=== PATIENT | female | born 1930 | race African-American/Black ===

== ENCOUNTER 2018-04-25 13:29 | Inpatient (IN) ==
--- NOTE | 2018-04-25 14:02 | EKG Report ---
Test Performed on : 04/25/2018 1:52:35 PM Test Reason : sob chest pain chf Blood Pressure : / mmHG Vent. Rate : 052 BPM Atrial Rate : 058 BPM P-R Int : 000 ms QRS Dur : 122 ms QT Int : 496 ms P-R-T Axes : 000 -50 036 degrees QTc Int : 461 ms Wide QRS rhythm. Right bundle branch block Left anterior fascicular block Bifascicular block Septal infarct , age undetermined Abnormal ECG When compared with ECG of 12-DEC-2017 13:54, (Unconfirmed) Wide QRS rhythm. has replaced Atrial fibrillation. Unconfirmed Result
[2018-04-25 14:28] LABS: BASO# 0.02 X1000 (0.0-0.2); BASO% 0.4 % (0.0-0.8); EOS# 0.02 X1000 (0.0-0.7); EOS% 0.4 % (0.0-10.0); HEMATOCRIT 18.7 % (37.0-47.0); IMM GRAN# 0.02 X1000 (0.0-0.04); IMM GRAN% 0.4 % (0.0-0.5); LYMPH# 0.81 X1000 (1.2-3.4); LYMPH% 15.6 % (20.5-51.1); MCH 28.6 PG (27-31); MCHC 29.9 g/dL (33-37); MCV 95.4 FL (81-99); MONO# 0.56 X1000 (0.11-0.59); MONO% 10.8 % (1.7-9.3); MPV 10.7 FL (7.4-10.4); NEUT# 3.77 X1000 (1.4-6.5); NEUT% 72.4 % (42.2-75.2); PLT 183 X1000 (130-400); RBC 1.96 XMIL (4.2-5.4)
[2018-04-25 14:30] LABS: HEMOGLOBIN 5.6 g/dL (12.0-16.0)
[2018-04-25 14:44] LABS: INR 3.96
[2018-04-25 14:46] LABS: D-DIMER 0.88 ug/mLFEU (0.0-0.52)
[2018-04-25 14:55] LABS: ALBUMIN 3.3 g/dL (3.5-5.0); CALCIUM 8.8 mg/dL (8.8-10.2); CREATININE 2.3 mg/dL (0.5-0.9); MAGNESIUM 1.8 mg/dL (1.5-2.7); POTASSIUM 5.6 mmol/L (3.5-5.1); PROTIME 40.5 Seconds (11.0-16.0); TOTAL BILIRUBIN 0.4 mg/dL (0.20-1.00); TOTAL PROTEIN 6.1 g/dL (6.3-8.3)
[2018-04-25 14:55] LABS: OCCULT BLOOD 1 POSITIVE (NEGATIVE)
--- NOTE | 2018-04-25 15:16 | Diag Imaging Result Doc PS360 ---
CHEST-2 VIEWS - 04/25/2018 INDICATION: chf sob chest pain COMPARISON: 12/12/2017 FINDINGS: Stable rather severe cardiomegaly. Pulmonary vascularity is top normal. No infiltrates or edema. No pneumothorax or pleural effusion. IMPRESSION: Stable cardiomegaly. Electronically signed by Minor Gonzalez 04/25/2018 3:14 PM
[2018-04-25] MEDS ORDERED: NS 1,000 ML ONE (16:35)
[2018-04-25] MEDS ORDERED: TYLENOL PO PRN (16:41)
[2018-04-25] MEDS ORDERED: ZOFRAN IV PRN (16:41)
[2018-04-25] MEDS: NS 1,000 ML IV SCH (16:45)
[2018-04-25] MEDS: APRESOLINE PO SCH (18:49)
[2018-04-25] MEDS: ISORDIL PO SCH (18:49)
[2018-04-25] MEDS ORDERED: ZEBETA PO SCH (21:00)
[2018-04-25] MEDS ORDERED: VITAMIN K 10 MG in NS 50 ML IV ONE (23:06)
[2018-04-25] MEDS ORDERED: SODIUM CHLORIDE 0.9% INJ SCH (23:15)
[2018-04-25] MEDS: TRUSOPT 2% OPH SOLN LEFT EYE SCH (23:25)
[2018-04-25] MEDS: LUMIGAN 0.01% OPH SOLUTION BOTH EYES SCH (23:26)
[2018-04-25] MEDS: PROTONIX IV SCH (23:30)
--- NOTE | 2018-04-25 23:42 | HISTORY AND PHYSICAL ---
PRIMARY CARE PHYSICIAN: Dr. Keiko Severino. CHIEF COMPLAINT: Shortness of breath, dizziness that began last night. HISTORY OF PRESENTING ILLNESS: This is an 87-year-old female who presents to [facility] ER with complaints of shortness of breath and dizziness that began last night. She was admitted to this facility approximately 1 month ago and diagnosed with a right femoral vein DVT and started on Xarelto has done well on it up until this point until last night she states she got worsening shortness of breath and dizziness. Her laboratory data showed a hemoglobin of 5.6, hematocrit 18.7, she has had rectal bleeding. Her D-dimer is 0.88, BUN of 76, creatinine 2.3. Her stool for occult blood was positive so she will be admitted to the [facility] for GI consultation for further evaluation and treatment. PAST MEDICAL HISTORY: Atrial fibrillation, CHF, hypertension, hyperlipidemia, diabetes type 2, hypothyroidism and a right femoral vein DVT diagnosed on 03/18/2018. PAST SURGICAL HISTORY: Appendectomy and hysterectomy. FAMILY HISTORY: Noncontributory. SOCIAL HISTORY: She currently lives alone. Denies any tobacco, alcohol or illicit drug use. ALLERGIES: She has no known drug allergies. HOME MEDICATIONS: She takes Cordarone 200 mg p.o. daily, aspirin 81 mg p.o. daily will be held, Lumigan eye drops 0.01% to both eyes at bedtime, Zebeta 10 mg p.o. at bedtime, vitamin B12 1000 mcg as directed will be held, Trusopt 2% ophthalmic solution 1 drop to left eye b.i.d., Lasix 40 mg p.o. daily will be held, hydralazine 25 mg p.o. t.i.d., isosorbide 20 mg p.o. t.i.d., levothyroxine 50 mcg p.o. daily, Losartan 100 mg p.o. daily, lovastatin 20 mg p.o. daily, Glucophage 850 mg p.o. b.i.d. will be held, ramipril 10 mg p.o. b.i.d. will be held, Xarelto 15 mg p.o. b.i.d. will be held and Aldactone 25 mg p.o. b.i.d. will be held. LABORATORY DATA: Showed a white blood cell count of 5.20, hemoglobin 5.6, hematocrit 18.7, platelets 183,000, PT and INR of 40.5 and 3.96 with a D-dimer of 0.88, sodium 141, potassium 5.6, chloride 108, CO2 14, BUN of 76, creatinine 2.3, glucose 148, magnesium 1.8. Cardiac enzyme was negative. ProBNP of 6838, stool for occult blood was positive. Chest x-ray showed stable cardiomegaly. EKG showed wide QRS rhythm with a right bundle-branch block at 52. REVIEW OF SYSTEMS: She denied any fever, chills, blurred vision. She has had dizziness, lightheadedness, shortness of breath. Denied any chest pain, coughing, abdominal pain, constipation, diarrhea, burning or hurting with urination. PHYSICAL EXAMINATION: On arrival she had a temperature of 97.8 degrees, pulse 51, respirations 20, blood pressure 130/51, saturating 96% on room air. GENERAL: This is an 87-year-old female lying in the bed and answers questions appropriately. HEENT: Normocephalic, atraumatic. Normal ENT inspection. Oropharynx and nares are clear. Pupils are equal, round, reactive to light, accommodation. Extraocular movements are intact. NECK: Normal inspection, normal range of motion. LUNGS: Clear to auscultation bilaterally. Equal lung expansion, chest wall movement. HEART: With regular rate and rhythm. No murmurs, rubs, or gallops. ABDOMEN: Soft, nontender, nondistended. Bowel sounds were present x4 quadrants. MUSCULOSKELETAL: She has 5/5 strength x4 extremities. NEUROLOGICAL: The cranial nerves 2-12 appear grossly intact. ASSESSMENT: 1. Gastrointestinal bleed. 2. Symptomatic anemia. 3. Acute kidney injury. 4. An elevated D-dimer secondary to having a right femoral vein deep vein thrombosis 1 month ago and was started on Xarelto. OUR PLAN: She will be admitted to the [facility]. Placed on telemetry. Diabetic diet. We will transfuse 2 units of packed red blood cells today, consult GI, normal saline at 50 mL an hour. We will hold her ERA, ARB and diuretics at this time and recheck a CBC, BMP in the a.m. Dictated by ROSALIE Cerda for Tejinder Rich MD cc: MD Tejinder Hidalgo MD
[2018-04-26] MEDS: LASIX IV ONE ×2 (00:23→01:45)
[2018-04-26 01:33] LABS: HEMATOCRIT 26.9 % (37.0-47.0); HEMOGLOBIN 8.8 g/dL (12.0-16.0)
[2018-04-26 06:03] LABS: BASO# 0.01 X1000 (0.0-0.2); BASO% 0.2 % (0.0-0.8); EOS# 0.06 X1000 (0.0-0.7); EOS% 1.1 % (0.0-10.0); HEMOGLOBIN 8.3 g/dL (12.0-16.0); LYMPH# 1.14 X1000 (1.2-3.4); LYMPH% 20.2 % (20.5-51.1); MCH 28.9 PG (27-31); MCHC 31.9 g/dL (33-37); MCV 90.6 FL (81-99); MONO# 0.89 X1000 (0.11-0.59); MONO% 15.8 % (1.7-9.3); MPV 10.6 FL (7.4-10.4); NEUT# 3.53 X1000 (1.4-6.5); NEUT% 62.7 % (42.2-75.2); PLT 152 X1000 (130-400); RBC 2.87 XMIL (4.2-5.4); RDW 15.4 % (11.5-14.5); WBC 5.63 X1000 (4.8-10.8)
[2018-04-26] MEDS: SYNTHROID PO SCH (06:17)
[2018-04-26 06:18] LABS: CALCIUM 8.9 mg/dL (8.8-10.2); CREATININE 2.1 mg/dL (0.5-0.9); POTASSIUM 5.1 mmol/L (3.5-5.1)
[2018-04-26] MEDS: APRESOLINE PO SCH ×3 (08:58→16:49)
[2018-04-26] MEDS: ISORDIL PO SCH ×3 (08:59→16:49)
[2018-04-26] MEDS: CORDARONE PO SCH (08:59)
[2018-04-26] MEDS: TRUSOPT 2% OPH SOLN LEFT EYE SCH ×2 (08:59→20:04)
[2018-04-26] MEDS: PATIENT'S OWN MED PO SCH (09:00)
--- NOTE | 2018-04-26 10:15 | HISTORY AND PHYSICAL ---
ADDENDUM: Patient was seen and examined by myself on the . Full note dictated and discussed with nurse practitioner. Patient presented to the ER with a chief complaint of blood in her stool. She was recently diagnosed with a DVT and was placed on Xarelto. We will admit her to the hospital, type and cross, transfuse, get GI involved. Further orders as needed. cc: Tejinder Rich MD
[2018-04-26] MEDS: PROTONIX IV SCH (10:32)
[2018-04-26] MEDS: NS 1,000 ML IV SCH ×3 (10:33→14:46)
[2018-04-26 13:14] LABS: INR 1.62; PROTIME 20.5 Seconds (11.0-16.0)
[2018-04-26 13:50] LABS: HEMATOCRIT 26.6 % (37.0-47.0); HEMOGLOBIN 8.5 g/dL (12.0-16.0)
[2018-04-26] MEDS: PROTONIX 80 MG in NS 80 ML IV SCH ×2 (14:32→23:51)
[2018-04-26] MEDS ORDERED: VITAMIN K 10 MG in NS 50 ML IV ONE (15:00)
--- NOTE | 2018-04-26 15:09 | PROGRESS NOTE ---
DATE: 04/26/2018 SUBJECTIVE: Has no complaints. As far as I can tell no further bleeding. OBJECTIVE: Vital Signs: Blood pressure is 135/95, heart rate of 54, respiratory rate 17, temperature 98.2, 98% on room air. Cardiovascular: Regular rate and rhythm. Pulmonary: Bilateral breath sounds, clear to auscultation. Gastrointestinal: Soft, nontender, nondistended. Bowel sounds are positive. She does have 2+ pitting edema in both legs. I would say one is slightly more than the other. LABORATORY DATA: White count 5, hemoglobin and hematocrit 8 and 26, platelets 152,000. INR is 1.6, bicarb 17, creatinine is 2.1, BUN is 82. Her proBNP though is 6838. PROBLEM LIST: 1. GI bleed, presumably lower, associated with Xarelto and she had a recent DVT. Unfortunately, not a great combination of events. We are obviously holding Xarelto. She was coagulopathic and we do not have access to the reversal agent at this time that I am aware of and DEXA met, I believe yes. She did get wisely 2 units of FFP. She also got vitamin K, but she is on a NOAC which is not a vitamin K antagonist. In any case, INR is better, it is 1.6 today. Should be okay for endoscopy, but I do not think GI has evaluated her yet. We will continue PPI and follow. Hemoglobin and hematocrit has improved as well. 2. Coagulopathy, again related to Xarelto, rivaroxaban, and that has improved. 3. History of DVT. We will rescan her legs. She has only had a month to a month and a half of treatment and she has had a significant bleed requiring 3 units of blood and 2 units of FFP at this point. I would say she is not going to be tolerant of anticoagulation and therefore I have requested a surgical consult for a filter. Hopefully, we can get that assessed and decided upon. She is 87. It is certainly possible she is not going to outlive her filter at 10 years of anticoagulation, but at this point I do not think we can safely anticoagulate her and apparently her DVT is from her ankle to her femoral area, and therefore high risk for embolization, but we will see what Dr. Holm says. 4. Acute kidney injury. Will continue gentle hydration. She does not have a history of failure. Her echocardiogram in July was normal. May consider repeating that. DISPOSITION: Pending her clinical status, her family would like her home by [place]. Explained that may be difficult considering what all is going on and the speed of which we can get procedures accomplished during the holiday weekend. cc: Edvin Bishop MD MTDD
[2018-04-26] MEDS: ICAR-C PO SCH (20:04)
[2018-04-26] MEDS: CARAFATE LIQUID PO SCH (20:04)
[2018-04-26] MEDS: LUMIGAN 0.01% OPH SOLUTION BOTH EYES SCH (20:04)
--- NOTE | 2018-04-26 20:08 | GENERAL SURGERY CONSULTATION ---
DATE: 04/26/2018 REQUESTING PHYSICIAN: Edvin Bishop MD. REASON FOR CONSULTATION: Consult requested concerning consideration of IVC filter. HISTORY OF PRESENT ILLNESS: An 87-year-old female who presented to the [facility] ER with complaints of shortness of breath and dizziness. She has previously been diagnosed with a right common femoral DVT and had been on Xarelto for maybe a month and a half. When she came in, she had rectal bleeding, a hematocrit of 18, with a presumed GI bleed. She was transferred over to [facility] for further evaluation. Given this and their need to stop Xarelto, I was asked to evaluate her for placement of an IVC filter. She is currently doing okay. Her hematocrit has been stable, and we are awaiting a repeat ultrasound. PAST MEDICAL HISTORY: Includes: 1. History of atrial fibrillation. 2. Congestive heart failure. 3. Hypertension. 4. Hyperlipidemia. 5. Diabetes mellitus type 2. 6. Hypothyroidism. 7. History of right femoral DVT. PAST SURGERY: Includes appendectomy and hysterectomy. FAMILY HISTORY: Noncontributory, but reviewed with patient. SOCIAL HISTORY: Currently lives at home. No alcohol, tobacco, or illicit drugs. ALLERGIES: None. MEDICATIONS: Home medications were reviewed. Of note, she was on Xarelto. REVIEW OF SYSTEMS: A full 10-point review of systems obtained and negative except as specified in HPI. PHYSICAL EXAMINATION: Vital Signs: The patient is currently afebrile. Her vital signs are stable. General: No acute distress, female, looks stated age. HEENT: Normocephalic, atraumatic. Pupils equal, round, reactive to light. Mucous membranes moist. Oropharynx benign. Neck: Supple. Trachea midline. Cardiovascular: Regular rate and rhythm. Lungs: Grossly clear. Abdomen: Soft, nontender, nondistended. Extremities: Moves all extremities. Neurologic: Grossly intact. Skin: No signs of jaundice. Vascular: All extremities perfused. LABORATORY: White blood cell count is 5, hematocrit 26, platelet count 152,000. INR 1.62. Remainder of labs reviewed. 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 GI bleed with chronic DVT. At this time, I would like to see a followup ultrasound to see if there actually still exists a clot. She did have a relatively extensive one back in March. If she does have a clot, may need to consider IVC filter. Discussed this with the family. Discussed the risks, benefits, and alternatives of the procedure. Risks including anesthesia, risk of perforation, risk of malpositioning, risk of fracturing, risk of clot formation, and risk that small clots will still pass through, all discussed with the family. They want to consider it but want to wait for further decision and ultimate decision until after the repeat ultrasound is done, which should be tomorrow. If there is indeed a clot, I may get my partner, Dr. Yan, to place it. cc: Kenan Holm MD
[2018-04-26 20:15] LABS: HEMATOCRIT 26.4 % (37.0-47.0); HEMOGLOBIN 8.4 g/dL (12.0-16.0)
--- NOTE | 2018-04-26 20:19 | CONSULTATION ---
DATE OF CONSULTATION: 04/26/2018 ATTENDING PHYSICIAN: Dr. Edvin Bishop MD. PRIMARY CARE PHYSICIAN: Keiko Severino MD. REASON FOR CONSULTATION: GI bleed. HISTORY OF PRESENT ILLNESS: Ms. Holguin is an 87-year-old female who was admitted on 04/25/2018 for shortness of breath and dizziness. The patient was initially admitted to [facility] and was transferred to [facility]. She was admitted to facility a month ago and was diagnosed with right femoral DVT and was started on Xarelto. On admission this time ,her hemoglobin was noted to be 5.6, and INR was noted to be 3.96. In the last 24 hours, she has been given 2 units FFP, vitamin K, and 3 units of blood. Her hematocrit has improved. She denies any nausea, vomiting, vomiting blood, or passing blood in the stools today. The patient denies having any previous history of peptic ulcer disease or previous history of EGDs. She has had a colonoscopy many years ago. I also spoke to the patient's sister and the patient and the patient's daughter by phone. PAST MEDICAL HISTORY: 1. Atrial fibrillation. 2. Congestive heart failure. 3. Hypertension. 4. Hyperlipidemia. 5. Type 2 diabetes. 6. Hypothyroidism. 7. Right femoral DVT diagnosed on 03/18/2018. PAST SURGICAL HISTORY: Appendectomy, hysterectomy. FAMILY HISTORY: Noncontributory. SOCIAL HISTORY: She lives alone. Her sister is present at bedside. I spoke to daughter by phone. No history of alcohol, tobacco, or illicit drugs. ALLERGIES: No known drug allergies. MEDICATIONS: Medications at home were reviewed. MEDICATIONS IN THE HOSPITAL: Included Tylenol, amiodarone, bimatoprost ophthalmic solution at bedtime, dorzolamide left eye b.i.d., hydralazine, Iron-C b.i.d., isosorbide dinitrate, Synthroid, multivitamin, normal saline 70 mL/hr., Zofran, Protonix drip, Carafate 1 g q.6 hours. She has been given vitamin K. She is currently on a diabetic diet, we just switched to clear liquid diet. REVIEW OF SYSTEMS: Denies any fevers, rigors, or chills. Denies any chest pain or shortness of breath. Today, on admission she complained of shortness of breath, which is improving now. She does have history of arthritis. She denies any vomiting blood. She does have history of rectal bleeding, and her stool occult was positive on admission. She denies any neurologic complaints. PHYSICAL EXAMINATION: Vital Signs: Temperature 97.8 degrees, pulse rate 52, respiratory rate of 17, blood pressure 139/63, saturating 98% on room air. Body weight of 145 pounds. BMI of 26.5 kg. General Appearance: The patient is moderately-built, moderately-nourished, lying in bed, in no acute distress. HEENT: Pale conjunctivae. No icterus. Pupils equal, reactive to light. Neck: Supple. Abdomen: Soft, nontender, nondistended. No guarding or rebound. Extremities: No cyanosis or clubbing. Neurologic: She is awake, alert. Answers simple questions. LABORATORY DATA: Hemoglobin and hematocrit are 8.3 and 26. White count of 5.63. Platelet count of 152,000. Sodium of 143, potassium 5.1, chloride 108, bicarb of 17, anion gap of 18, BUN of 82, creatinine of 2.1, glucose of 110, calcium is 8.9, total bilirubin is 0.40. AST 24, ALT 13, alkaline phosphatase 56, total protein is 6.1, albumin of 3.3. Stool occult blood was positive. PT of 20.5. INR 1.62. IMPRESSION AND PLAN: 1. Positive Hemoccult. 2. Rectal bleeding. 3. Anemia. 4. Coagulopathy in the setting of recent history of right-sided femoral deep venous thrombosis. 5. History of congestive heart failure. 6. Coronary artery disease. 7. Chronic obstructive pulmonary disease. 8. History of hypertension. 9. Diabetes. 10. Hyperlipidemia. 11. Anemia. RECOMMENDATIONS: 1. We will start the patient on clear liquid diet. We will continue to watch patient's hematocrit. Type and cross, transfuse to keep hematocrit more than 25%. We will check serial hematocrits. We will give additional dose of vitamin K as INR is still 1.6. We will schedule for EGD tomorrow under anesthesia. The risks, benefits, indications, and alternatives to the procedure discussed with the patient and family and with her daughter on phone. All questions answered. Her risk of any kind of procedure including EGD is slightly high because of multiple medical comorbid conditions. 2. Coagulopathy. This is secondary to Xarelto. This is currently being reversed with FFPs and vitamin K. 3. History of deep venous thrombosis, aware. 4. Acute kidney injury. Continue gentle hydration. 5. Continue Protonix drip and Carafate. 6. Anemia. Continue iron-C b.i.d. and multivitamin once daily. 7. Hypothyroidism. Continue Synthroid. 8. Further recommendations to follow pending hospital course. The above plan discussed with the patient and family and all questions answered. Please call us with any further questions. cc: MD Keiko Jones MD
[2018-04-27] MEDS: CARAFATE LIQUID PO SCH ×4 (01:20→20:03)
[2018-04-27 02:56] LABS: HEMATOCRIT 25.2 % (37.0-47.0); HEMOGLOBIN 8.1 g/dL (12.0-16.0)
[2018-04-27 05:42] LABS: INR 1.37; PROTIME 17.9 Seconds (11.0-16.0)
[2018-04-27] MEDS: NS 1,000 ML IV SCH ×2 (05:53→19:22)
[2018-04-27] MEDS: SYNTHROID PO SCH (05:54)
[2018-04-27 06:01] LABS: BASO# 0.01 X1000 (0.0-0.2); BASO% 0.2 % (0.0-0.8); EOS# 0.14 X1000 (0.0-0.7); EOS% 2.7 % (0.0-10.0); HEMATOCRIT 25.2 % (37.0-47.0); HEMOGLOBIN 8.1 g/dL (12.0-16.0); LYMPH% 15.6 % (20.5-51.1); MCH 29.1 PG (27-31); MCHC 32.1 g/dL (33-37); MCV 90.6 FL (81-99); MONO# 0.92 X1000 (0.11-0.59); MONO% 17.9 % (1.7-9.3); MPV 10.1 FL (7.4-10.4); NEUT# 3.26 X1000 (1.4-6.5); NEUT% 63.6 % (42.2-75.2); PLT 162 X1000 (130-400); RBC 2.78 XMIL (4.2-5.4); RDW 15.7 % (11.5-14.5); WBC 5.13 X1000 (4.8-10.8)
[2018-04-27 06:11] LABS: CALCIUM 8.6 mg/dL (8.8-10.2); CREATININE 1.8 mg/dL (0.5-0.9); POTASSIUM 4.1 mmol/L (3.5-5.1)
--- NOTE | 2018-04-27 06:14 | GENERAL SURGERY PROGRESS NOTE ---
DATE: 04/27/2018 SUBJECTIVE: Patient seems to be doing okay. No complaints from the patient. OBJECTIVE: Vital Signs: Patient is currently afebrile, her vital signs stable. General: No acute distress. HEENT: Normocephalic, atraumatic. Pupils equal, round, reactive to light. Mucous membranes moist. Oropharynx benign. Neck: Supple, trachea midline. Cardiovascular: Regular rate and rhythm. Lungs: Grossly clear. Abdomen: Soft, nontender, nondistended. Extremities: Moves all extremities. Neurologic: Grossly intact. Skin: No signs of jaundice. Vascular: All extremities perfused. LABORATORY: Hematocrit this morning most recent is 25.2 which is relatively stable. INR 1.37. Ultrasound is pending. ASSESSMENT AND PLAN: An 87-year-old with history of DVT, now with GI bleed. 1. History of deep venous thrombosis. At this time, we will get a follow-up ultrasound to see if the clot still exists. If it does, may need to consider placement of an IVC filter. cc: Kenan Holm MD
[2018-04-27] MEDS: TRUSOPT 2% OPH SOLN LEFT EYE SCH ×2 (08:14→20:03)
[2018-04-27] MEDS: APRESOLINE PO SCH ×3 (08:14→17:09)
[2018-04-27] MEDS: CORDARONE PO SCH (08:14)
[2018-04-27] MEDS: ICAR-C PO SCH ×2 (08:14→20:03)
[2018-04-27] MEDS: ISORDIL PO SCH ×3 (08:14→17:09)
[2018-04-27] MEDS: CENTRUM SILVER PO SCH (08:14)
[2018-04-27] MEDS: PATIENT'S OWN MED PO SCH (08:15)
[2018-04-27 08:33] LABS: HEMATOCRIT 28.6 % (37.0-47.0); HEMOGLOBIN 8.9 g/dL (12.0-16.0)
[2018-04-27] MEDS ORDERED: VITAMIN K 10 MG in NS 50 ML IV ONE (10:47)
[2018-04-27] MEDS: PROTONIX 80 MG in NS 80 ML IV SCH ×2 (11:20→20:02)
[2018-04-27] MEDS ORDERED: XYLOCAINE-MPF 2% ONE (12:26)
[2018-04-27] MEDS ORDERED: AMIDATE ONE (12:26)
--- NOTE | 2018-04-27 14:12 | OPERATIVE NOTE ---
PROCEDURE DATE: 04/27/2018 ATTENDING PHYSICIAN: Dr. Chung. PRIMARY CARE PHYSICIAN: Dr. Keiko Severino. TITLE OF STUDY: Esophagogastroduodenoscopy. PREOPERATIVE DIAGNOSES: 1. Gastrointestinal bleed. 2. Coagulopathy, which was corrected. History of use of Xarelto at home, which was discontinued. She was given vitamin K and FFPs in the hospital. She required 3 units of blood transfusion, 2 units of FFP and vitamin K to correct the coagulopathy. Current INR is 1.17. 3. History of deep venous thrombosis in the past. POSTOPERATIVE DIAGNOSES: 1. Z-line at 44 cm. 2. Evidence of gastric ulcer in the body of the stomach, measuring 1 cm superficial. No active bleeding. No visible vessel. There was surrounding gastritis in the body and antrum. 3. Normal fundus, cardia, incisura. 4. Retroflexion revealed evidence of normal duodenal bulb, second and third portions. 5. No evidence of any fresh or old blood in the entire EGD. ESTIMATED BLOOD LOSS: None. COMPLICATIONS: None. ANESTHESIA: Monitored anesthesia care, per the anesthesiologist. SPECIMENS: None. DESCRIPTION OF PROCEDURE: After informed consent, where the patient and the family were explained the risks, benefits, indications, and alternatives to the procedure, the patient prepared for EGD. The patient was brought to the OR. She was turned on the left lateral position. A bite block was placed in patient's mouth. After adequate monitored anesthesia care, the upper scope was introduced all the way to the second and third portion of duodenum. The esophagus was normal in its entire length. The Z-line was at 44 cm. The stomach showed evidence of erythema and friability in the body and antrum. There was evidence of ulcer in the gastric body, measuring 1 cm. This was a clean base. No visible vessel. No overlying clot. Retroflexion revealed normal fundus, cardia, incisura. The duodenal bulb, 2nd and 3rd portions of the duodenum appeared normal. There was no evidence of any fresh or old blood in the entire EGD. The air was slowly withdrawn. The patient was then monitored in the OR in stable condition. RECOMMENDATIONS: 1. The patient will be on a full liquid diet, advance as tolerated. The patient will continue on Protonix twice daily for 3 months, and then wean down to Zantac 150 mg p.o. b.i.d. 2. The patient will be on Carafate 1 g every 6 hours for 6 weeks. 3. The patient will be on Iron C b.i.d. and multivitamin once daily for 3 months. 4. The patient will return to clinic in 3 weeks after discharge. The patient will need a repeat EGD in 3 months to document healing of the ulcer. 5. The patient will avoid any NSAIDs. The patient will continue to follow gastroesophageal reflux lifestyle changes, avoid excessive tea, coffee, soda, tomatoes, onions, spicy foods. 6. The patient will follow up as an outpatient with the primary care doctor to follow up on blood work. The above plan was discussed with the patient and family, and all questions answered. Please call with any further questions. cc: MD Keiko Jones MD
[2018-04-27 14:58] LABS: HEMATOCRIT 26.9 % (37.0-47.0); HEMOGLOBIN 8.3 g/dL (12.0-16.0)
--- NOTE | 2018-04-27 17:37 | PROGRESS NOTE ---
DATE: 04/27/2018 SUBJECTIVE: The patient is resting comfortably in bed. She underwent EGD today. OBJECTIVE: Vital Signs: Temperature 98.1 degrees, blood pressure 149/65, heart rate 55, respirations 17, O2 saturation is 100% on room air. General: The this is an elderly female lying in bed in no acute distress. Heart: S1, S2 normal. Regular rate and rhythm. Lungs: Equal air entry bilaterally. No crackles, no rales. Abdomen: Positive bowel sounds. Soft, nontender, nondistended. Extremities: No edema, no cyanosis. Neuro: The patient is alert and oriented x3. LABS: Hemoglobin 8.3, hematocrit 26, platelets 162,000, sodium 142, potassium 4.1, chloride 112, CO2 19, BUN 62, creatinine 1.8, glucose 114, calcium 8.6, INR 1.3. ASSESSMENT AND PLAN: 1. Gastrointestinal bleed. Hemoglobin and hematocrit is stable. No further bleeding noted. 2. Gastric ulcer with gastritis. Continue on Protonix and Carafate. 3. Anemia of acute blood loss. Stable, continue on Icar C, transfuse p.r.n. 4. Hypothyroidism. Continue on Synthroid. 5. Right lower extremity deep vein thrombosis. A repeat venous Doppler has been ordered, will await these results. General Surgery is following. The patient's anticoagulation is on hold at this time. 6. Hypertension. Continue on current antihypertensive regimen. cc: Aarti Chung MD [facility]
[2018-04-27 19:56] LABS: HEMATOCRIT 26.5 % (37.0-47.0); HEMOGLOBIN 8.3 g/dL (12.0-16.0)
[2018-04-27] MEDS: LUMIGAN 0.01% OPH SOLUTION BOTH EYES SCH (20:03)
[2018-04-28 02:25] LABS: HEMATOCRIT 25.9 % (37.0-47.0); HEMOGLOBIN 8.1 g/dL (12.0-16.0)
[2018-04-28] MEDS: CARAFATE LIQUID PO SCH ×4 (02:38→21:33)
[2018-04-28 05:43] LABS: HEMATOCRIT 25.3 % (37.0-47.0); MCH 29.5 PG (27-31); MCHC 31.6 g/dL (33-37); MCV 93.4 FL (81-99); MPV 9.5 FL (7.4-10.4); RBC 2.71 XMIL (4.2-5.4); RDW 15.9 % (11.5-14.5); WBC 5.71 X1000 (4.8-10.8)
[2018-04-28] MEDS: PROTONIX 80 MG in NS 80 ML IV SCH ×2 (05:54→15:24)
[2018-04-28] MEDS: SYNTHROID PO SCH (05:54)
[2018-04-28 05:56] LABS: CALCIUM 8.5 mg/dL (8.8-10.2); CREATININE 1.4 mg/dL (0.5-0.9); POTASSIUM 4.4 mmol/L (3.5-5.1)
[2018-04-28] MEDS ORDERED: D5W 1,000 ML IV SCH (07:30)
[2018-04-28] MEDS: APRESOLINE PO SCH ×3 (08:34→17:04)
[2018-04-28] MEDS: ISORDIL PO SCH ×3 (08:34→17:04)
[2018-04-28] MEDS: CORDARONE PO SCH (08:34)
[2018-04-28] MEDS: ICAR-C PO SCH ×2 (08:34→21:33)
[2018-04-28] MEDS: CENTRUM SILVER PO SCH (08:34)
[2018-04-28] MEDS: TRUSOPT 2% OPH SOLN LEFT EYE SCH ×2 (08:35→21:37)
[2018-04-28] MEDS: PATIENT'S OWN MED PO SCH (08:35)
--- NOTE | 2018-04-28 12:11 | GENERAL SURGERY PROGRESS NOTE ---
DATE: 04/28/2018 SUBJECTIVE: No further bleeding. She did have a small bowel movement that had a little bit of blood but that is it. EGD showed a gastric ulcer. Her hematocrits have been stable since she has been off her anticoagulation. OBJECTIVE: White count is 5. Creatinine is 1.4. She had a bilateral lower extremity venous and upper extremity venous ultrasound that showed no DVT or superficial venous thrombosis. ASSESSMENT AND PLAN: This is an 87-year-old female on anticoagulation for deep venous thrombosis. She had a gastrointestinal bleed, most likely related to a peptic ulcer, although was not bleeding at the time of the esophagogastroduodenoscopy. She has not had a colonoscopy. Her hematocrits have been stable off anticoagulation. Given the lack of deep venous thrombosis, we will hold off on the inferior vena cava filter in this 87-year-old female. I have discussed this with the family via phone and the patient personally. We will monitor her closely. Her abdomen is soft. She is alert. Cardiovascular has normal rate and regular rhythm. Lower extremities show no significant edema. We will continue to monitor her. cc: Rakesh Wisdom MD
[2018-04-28] MEDS ORDERED: LASIX IV ONE ×2 (13:57→21:15)
[2018-04-28] MEDS: DUONEB (A & A) INH SCH ×4 (14:26→23:04)
--- NOTE | 2018-04-28 14:31 | Diag Imaging Result Doc PS360 ---
CHEST-PORTABLE - 04/28/2018 INDICATION: dyspnea COMPARISON: 04/25/2018 FINDINGS: Stable cardiomegaly and pulmonary vascular congestion. There is new significant central interstitial infiltrate bilaterally compatible with pulmonary edema. There are new small bilateral pleural effusions. IMPRESSION: Cardiomegaly, interstitial pulmonary edema, pleural effusions. Electronically signed by Minor Gonzalez 04/28/2018 2:29 PM
--- NOTE | 2018-04-28 14:37 | PROGRESS NOTE ---
DATE: 04/28/2018 SUBJECTIVE: The patient states that she feels weak and tired. She does have swelling involving her left upper extremity where a previous IV was in place. She reports no further blood in her stools. OBJECTIVE: Vital Signs: Temperature is 97 degrees, blood pressure 141/62, heart rate 78, respirations 18, O2 saturation 96% on room air. General: This is a chronically ill-appearing elderly female lying in bed in no acute distress. Heart: S1, S2 normal. Regular rate and rhythm. Lungs: Equal air entry bilaterally. No crackles. No rales. Abdomen : Positive bowel sounds. Soft, nontender, nondistended. Extremities: 2+ edema bilaterally in the lower extremities. Neurologic: The patient is alert and oriented x3. No focal neurologic deficits. LABORATORY DATA: White blood cell count 5.7, hemoglobin 9.1, hematocrit 25, platelets 167,000 sodium 146, potassium 4.4, chloride 115, CO2 19, BUN 37, creatinine 1.4, glucose 125, calcium 8.5. ASSESSMENT AND PLAN: 1. Gastrointestinal bleed secondary to gastric ulcers. The patient's hemoglobin and hematocrit is stable. Continue on Protonix and Carafate. 2. Volume overload with pulmonary edema. Will start IV lasix and monitor the patient's urine output closely. 3. HOLLY. Improving. 4. Anemia. Stable. 5. Right lower extremity deep vein thrombosis. We will await the official report of the venous Doppler. 6. Hypothyroidism. Continue on Synthroid. 7. Hypertension. Continue current antihypertensive regimen. 8. Disposition: Will consult physical therapy. cc: Aarti Chung MD KALEIDA HEALTHEdison
[2018-04-28 15:25] LABS: BLOOD TYPE ARTERIAL; MODALITY CANNULA; SAMPLE BLOOD; pH(98.6) 7.32 (7.35-7.45)
[2018-04-28 15:26] LABS: BE -4.7 mmoll (-3.0-3.0); HCO3-(ACT) 20.3 mmoll (20.0-26.0); PCO2(98.6) 41 mmHg (35-45); PO2(98.6) 58 mmHg (60-100); THB 9.3 g/dL (11.5-17.4)
[2018-04-28 15:27] LABS: ALLEN TEST NO; METHB 0.6 % (0.0-1.5); O2(CT) 6.2 mL/dL (15.0-23.0)
[2018-04-28] MEDS: LUMIGAN 0.01% OPH SOLUTION BOTH EYES SCH (21:37)
[2018-04-29] MEDS: PROTONIX 80 MG in NS 80 ML IV SCH (03:17)
[2018-04-29] MEDS: DUONEB (A & A) INH SCH ×6 (03:42→23:04)
[2018-04-29 05:41] LABS: HEMATOCRIT 24.9 % (37.0-47.0); HEMOGLOBIN 7.7 g/dL (12.0-16.0); MCH 29.1 PG (27-31); MCHC 30.9 g/dL (33-37); MPV 9.8 FL (7.4-10.4); RBC 2.65 XMIL (4.2-5.4); RDW 15.7 % (11.5-14.5); WBC 6.5 X1000 (4.8-10.8)
[2018-04-29] MEDS: SYNTHROID PO SCH (06:03)
[2018-04-29] MEDS: CARAFATE LIQUID PO SCH ×4 (06:03→20:41)
[2018-04-29] MEDS: LASIX IV SCH ×2 (06:03→18:03)
[2018-04-29 06:13] LABS: CREATININE 1.2 mg/dL (0.5-0.9); POTASSIUM 3.9 mmol/L (3.5-5.1)
[2018-04-29 06:14] LABS: CALCIUM 8.7 mg/dL (8.8-10.2)
--- NOTE | 2018-04-29 07:39 | Diag Imaging Result Doc PS360 ---
CHEST-PORTABLE - 04/29/2018 INDICATION: pulmonary edema COMPARISON: 04/28/2018 FINDINGS: Stable pleural effusions right greater than left. Stable cardiomegaly and pulmonary vascular congestion. Stable mild interstitial pulmonary edema. IMPRESSION: No change from prior. Electronically signed by Minor Gonzalez 04/29/2018 7:37 AM
[2018-04-29] MEDS ORDERED: VITAMIN D PO SCH (08:15)
[2018-04-29] MEDS: ICAR-C PO SCH ×2 (08:47→20:41)
[2018-04-29] MEDS: CENTRUM SILVER PO SCH (08:47)
[2018-04-29] MEDS: ISORDIL PO SCH ×3 (08:47→17:22)
[2018-04-29] MEDS: APRESOLINE PO SCH ×3 (08:47→17:22)
[2018-04-29] MEDS: CORDARONE PO SCH (08:47)
[2018-04-29] MEDS: PATIENT'S OWN MED PO SCH (08:48)
[2018-04-29] MEDS: TRUSOPT 2% OPH SOLN LEFT EYE SCH ×2 (08:48→20:42)
--- NOTE | 2018-04-29 09:13 | GENERAL SURGERY PROGRESS NOTE ---
DATE: 04/29/2018 SUBJECTIVE: Bleeding is resolved. No fevers. No tachycardia. OBJECTIVE: Vital Signs: Blood pressures systolics have been in the 120s to 140s. General: She is alert. Cardiovascular: Normal rate. Pulmonary: She is on nasal cannula. Abdomen: Soft and nontender. Integument: Warm and dry. Peripheral vascular: Trace lower extremity edema bilaterally, but no pain. LABORATORY DATA: Hematocrit 24, stable from 25. White count is 6. Creatinine is 1.2. DIAGNOSTIC STUDIES: Her lower extremity ultrasounds show no DVT in the lower extremities or upper extremity. ASSESSMENT AND PLAN: An 87-year-old female with history of deep venous thrombosis, now with a gastrointestinal bleed secondary to her anticoagulation and a gastric ulcer. Will hold her anticoagulation and hold off on filter as she does not have any evidence for persistent thrombus in this 87-year-old female. Will continue to monitor closely. I have discussed this plan with the family and they are agreeable. cc: Rakesh Wisdom MD
[2018-04-29] MEDS ORDERED: SODIUM CHLORIDE 0.9% INJ SCH (10:00)
[2018-04-29] MEDS: PROTONIX IV SCH ×2 (10:15→21:44)
--- NOTE | 2018-04-29 11:44 | PROGRESS NOTE ---
DATE: 04/29/2018 SUBJECTIVE: Patient is resting in bed. The patient is feeling better. I spoke to the patient's family at bedside. The patient denies any nausea, vomiting, vomiting blood, or passing blood in the stools. OBJECTIVE: Vital signs: Temperature of 98.8 degrees, pulse rate 64, respiratory rate 20, blood pressure 121/51, saturating 100% on 2 L nasal cannula. General Appearance: Moderately built, moderately nourished, sitting in bed, in no acute distress. HEENT: Pale conjunctivae. No icterus. Neck: Supple. Abdomen: Protuberant soft, nontender, nondistended. No guarding. Extremities: No cyanosis or clubbing. Bilateral lower extremity edema noted. Neuro Emerson: She is alert, awake, oriented. LABS: Her hemoglobin and hematocrit is 7.7 and 24.9, white count of 6.5, platelet count of 168,000. Sodium 144, potassium 3.9, chloride 111, bicarb 23, anion gap 11, BUN of 25, creatinine 1.2, glucose of 163, calcium is 8.7. Her x-ray of the chest done today showed stable pleural effusions, right greater than left. Stable cardiomegaly and pulmonary vascular congestion, stable mild interstitial pulmonary edema. IMPRESSION AND PLAN: 1. Gastrointestinal bleeding secondary to gastric ulcers in the setting of coagulopathy. She will continue Protonix twice daily for 3 months and then cut down to Zantac 150 mg p.o. b.i.d. She will continue Carafate 1 gram every 6 hours for 6 weeks. 2. Anemia. Continue to watch for now. She will continue Iron C b.i.d. and multivitamin once daily. 3. Volume overload with pulmonary edema. She will continue IV Lasix. 4. Acute kidney injury is improving. 5. Right lower extremity deep venous thrombosis. She was seen by General Surgery. Her new lower extremity ultrasound does not show any deep venous thrombosis. 6. Hypothyroidism. She is on Synthroid. 7. Gastrointestinal prophylaxis, proton-pump inhibitors. 8. Constipation. She will continue on MiraLAX twice daily. 9. The patient return to clinic in 3 months on discharge. She will need a repeat EGD to document healing of the ulcers. The above plans was discussed with the patient and family, and all questions answered. Dr. Lamb is covering us for May 06, 2017. Please call us with any further questions. cc: MD Aarti Jones MD Emily M. McClure, MD Matthew L. Figh, MD
[2018-04-29 12:45] LABS: HEMATOCRIT 29.3 % (37.0-47.0); HEMOGLOBIN 8.8 g/dL (12.0-16.0)
--- NOTE | 2018-04-29 20:27 | PROGRESS NOTE ---
DATE: 04/29/2018 SUBJECTIVE: The patient is resting comfortably in bed. She states that she wants to start getting up and walking. OBJECTIVE: Vital Signs: Temperature 98.9, blood pressure 128/45, heart rate 69, respirations 17, O2 saturation 95% on 3 liters nasal cannula. General: This is a ngmsziuipyk-ved-ipoiewobl elderly female lying in bed in no acute distress. Heart: S1 and S2 normal. Regular rate and rhythm. Lungs: Equal air entry bilaterally. No wheezing. No rales. Abdomen: Positive bowel sounds. Soft, nontender, nondistended. Extremities: There is 1+ edema bilaterally. Neurologic: The patient is alert and oriented x3. LABS: White blood cell count 6.5, hemoglobin 8.8, hematocrit 29, platelets 168. Sodium 145, potassium 3.9, chloride 111, CO2 23. BUN 25, creatinine 1.2. Glucose 163. ASSESSMENT/PLAN: 1. Volume overload with pulmonary edema. Continue with diuretic therapy. 2. Acute kidney injury, improved. Continue to monitor the patient's urine output closely while on diuretic therapy. 3. Gastrointestinal bleed secondary to gastric ulcers. Continue on Protonix and Carafate. 4. Anemia. Will continue to monitor the patient's hemoglobin and hematocrit closely. 5. History of deep venous thrombosis. The repeat bilateral venous Doppler shows no evidence of deep venous thrombosis. The patient has been taken off of anticoagulation. 6. Hypothyroidism. Continue on Synthroid. 7. Hypertension. Continue on current antihypertensive regimen. 8. Constipation. Continue on scheduled laxative therapy. 9. Will consult physical therapy. cc: Aarti Chung MD
[2018-04-29] MEDS: LUMIGAN 0.01% OPH SOLUTION BOTH EYES SCH (20:41)
[2018-04-29] MEDS: MIRALAX PO SCH (20:41)
[2018-04-30] MEDS: DUONEB (A & A) INH SCH ×6 (03:29→23:05)
[2018-04-30 05:38] LABS: HEMATOCRIT 23.7 % (37.0-47.0); HEMOGLOBIN 7.4 g/dL (12.0-16.0); MCH 29.2 PG (27-31); MCHC 31.2 g/dL (33-37); MCV 93.7 FL (81-99); MPV 9.5 FL (7.4-10.4); RBC 2.53 XMIL (4.2-5.4); RDW 15.6 % (11.5-14.5); WBC 6.23 X1000 (4.8-10.8)
[2018-04-30 05:40] LABS: CALCIUM 8.6 mg/dL (8.8-10.2); CREATININE 1.2 mg/dL (0.5-0.9); POTASSIUM 4.1 mmol/L (3.5-5.1)
[2018-04-30] MEDS: LASIX IV SCH ×2 (06:08→18:39)
[2018-04-30] MEDS: CARAFATE LIQUID PO SCH ×4 (06:08→22:24)
[2018-04-30] MEDS: SYNTHROID PO SCH (06:08)
--- NOTE | 2018-04-30 07:53 | Diag Imaging Result Doc PS360 ---
EXAM: CHEST-PORTABLE 04/30/2018 HISTORY: dyspnea TECHNIQUE: AP portable at 0537 COMMENT: There is cardiomegaly. There is hazy pulmonary edema bilaterally which has improved slightly since 04/29/2018. IMPRESSION: Improved pulmonary edema. Electronically signed by Sanford Kilgore 04/30/2018 7:51 AM
[2018-04-30] MEDS: MIRALAX PO SCH ×2 (09:39→22:32)
[2018-04-30] MEDS: CORDARONE PO SCH (09:40)
[2018-04-30] MEDS: APRESOLINE PO SCH ×3 (09:40→18:39)
[2018-04-30] MEDS: ISORDIL PO SCH ×3 (09:40→18:39)
[2018-04-30] MEDS: ICAR-C PO SCH ×2 (09:40→22:25)
[2018-04-30] MEDS: CENTRUM SILVER PO SCH (09:40)
[2018-04-30] MEDS: TRUSOPT 2% OPH SOLN LEFT EYE SCH ×2 (09:41→22:23)
[2018-04-30] MEDS: PATIENT'S OWN MED PO SCH (09:42)
[2018-04-30] MEDS ORDERED: NS 500 ML ONE (10:43)
[2018-04-30] MEDS: PROTONIX IV SCH ×2 (10:50→22:25)
[2018-04-30] MEDS ORDERED: LASIX IV ONE (12:30)
[2018-04-30 15:28] LABS: LDH 280 U/L (135-214); TOTAL IRON 69 ug/dL (49-151)
[2018-04-30 15:51] LABS: FERRITIN 82 ng/mL (13-150)
--- NOTE | 2018-04-30 16:05 | PROGRESS NOTE ---
DATE: 04/30/2018 SUBJECTIVE: The patient is resting comfortably in bed. No acute events noted. She states that she feels a lot better. She is no longer requiring supplemental oxygen. OBJECTIVE: Vital Signs: Temperature 98, blood pressure 143/54, heart rate 71, respirations 18, O2 sats 98% on room air. General: This is a elderly female lying in bed in no acute distress. Heart: S1, S2 normal. Regular rate and rhythm. Lungs: Equal air entry bilaterally. No wheezing. No rales. No rhonchi. Abdomen: Positive bowel sounds. Soft, nontender, nondistended. Extremities: 2+ edema. Neurologic: The patient is alert and oriented x 3. LABS: White blood cell count 6.2, hemoglobin 7.4, hematocrit 23, platelets 164, 000. Sodium 143, potassium 4.1, chloride 110, CO2 25, BUN 20, creatinine 1.2, glucose 125, calcium 8.6, iron 69. ASSESSMENT AND PLAN: 1. Acute pulmonary edema. Improved. We will continue with diuretic therapy. 2. Acute kidney injury. Improved. 3. GI bleed secondary to gastric ulcers. Continue on Protonix and Carafate. 4. Anemia. The patient's hemoglobin and hematocrit have dropped. We will transfuse 1 unit of packed red blood cells and continue to monitor the hemoglobin and hematocrit closely. The patient has not had a bowel movement since before endoscopy. Hematology has been consulted. 5. Hypothyroidism. Continue on Synthroid. 6. Hypertension. Continue on the current antihypertensive regimen. 7. History of DVT. The patient has no evidence of DVT at this time. The patient is now off of anticoagulation. 8. Constipation. The patient is on scheduled laxative therapy. 9. DM type 2. Stable. 10. Continue with physical therapy. cc: Aarti Chung MD MTDD
[2018-04-30] MEDS: HUMULIN R SUBQ SCH ×2 (17:15→22:22)
--- NOTE | 2018-04-30 18:52 | Diag Imaging Result Doc PS360 ---
EXAM: ABDOMEN FLAT/UPRIGHT - 04/30/2018 HISTORY: constipation TECHNIQUE: Portable supine and upright abdomen COMPARISON: None. FINDINGS: The bowel gas pattern appears nonspecific and nonobstructive. There are some retained fecal debris in the colon. There is no free air identified. IMPRESSION: Nonspecific bowel gas pattern. Possible mild constipation. Electronically signed by Jose Francisco Wells 04/30/2018 6:50 PM
[2018-04-30] MEDS ORDERED: PATIENT'S OWN MED PO SCH (21:00)
[2018-04-30] MEDS ORDERED: PRAVACHOL PO SCH (21:00)
[2018-04-30] MEDS: LUMIGAN 0.01% OPH SOLUTION BOTH EYES SCH (22:25)
[2018-05-01] MEDS: DUONEB (A & A) INH SCH ×2 (03:12→07:35)
--- NOTE | 2018-05-01 03:26 | HEMO/ONC CONSULTATION ---
DATE: 04/30/2018 REQUESTING PROVIDER: Hospital Service. REASON FOR CONSULTATION: Anemia. HISTORY OF PRESENT ILLNESS: Ms. Holguin is an 87-year-old female who has been admitted to the hospital back on 04/25/2018 with a GI bleed. The patient was actually diagnosed with a blood clot back on 03/18/2018 and was on Xarelto. She was on Xarelto upon the presentation. Xarelto has subsequently been discontinued. The patient has received 3 units of packed red blood cells as well as 2 units of fresh frozen plasma. She has undergone an EGD which should not find any evidence of flush or old blood in the upper GI tract. The patient has not undergone colonoscopy. She does have a history of atrial fibrillation as well as congestive heart failure, hypothyroidism and hypertension. She also has some chronic kidney disease. The patient's hemoglobin on admission was 5.6. Hemoglobin today is 7.4. She continually needs repeat transfusions, and we have been consulted to work up her anemia further. PAST MEDICAL HISTORY: 1. Atrial fibrillation. 2. CHF. 3. Hypertension. 4. Hyperlipidemia. 5. Type 2 diabetes. 6. Hypothyroidism. 7. Chronic kidney disease. 8. History of right DVT diagnosed 03/18/2018, previously on Xarelto. PAST SURGICAL HISTORY: 1. Appendectomy. 2. Hysterectomy. SOCIAL HISTORY: The patient lives alone. She denies any alcohol, illicit or tobacco use. REVIEW OF SYSTEMS: Twelve point review of systems has been conducted and is negative except for what is expressed in the HPI. PHYSICAL EXAMINATION: Vital Signs: Temperature 98.6 degrees, heart rate 61, respirations 20, blood pressure 120/64, O2 saturation is 95% on room air. General: This is a well-nourished and well-developed female lying in a hospital bed. She has a family member at bedside. She is in no acute distress. HEENT: Head normocephalic and atraumatic. Eyes: Pupils are equal, round and reactive. Heent: Ears, Nose, throat, neck, mouth, and mucosa appears to be normal. Gross auditory acuity is intact. Cardiovascular: S1 and S2 heard. Regular rate and rhythm. Respiratory: Chest is clear with normal respiratory effort. Gastrointestinal: Abdomen is soft, nontender, and nondistended with normoactive bowel sounds. Musculoskeletal: No bony abnormalities. Extremities: Some trace edema. Neurologic: The patient is alert and oriented. LABS AND STUDIES: White blood cells 6.23, hemoglobin 7.4, hematocrit 23.7, platelet count 164,000. Sodium 145 potassium 4.1, chloride 110, CO2 is 25, BUN 20, creatinine 1.2, glucose 1.25, glucose 125. ASSESSMENT/PLAN: 1. Anemia. Likely multifactorial. The patient had blood loss anemia on admission. She has received several units of packed red blood cells and is still having issues. She could also have a component of anemia of chronic disease. We will go ahead and check her iron, B12 and folate at this time. We will also check lactate dehydrogenase LDH and haptoglobin to rule out any hemolysis. Finally we will go ahead and check a multiple myeloma panel. We will review all those results. Currently the patient is on oral iron. Also of note, she does have a normal white blood cell count and platelet count. 2. Acute kidney injury on chronic kidney disease, improved. 3. Gastrointestinal bleed secondary to gastric ulcers. The patient is on Protonix and Carafate at this time. 4. Hypothyroidism. Continue Synthroid through the primary team. 5. History of deep venous thrombosis. The patient has no evidence of deep venous thrombosis on most recent Doppler studies per her chart. She is off of all anticoagulation at this time. The patient is not a candidate for inferior vena cava filter. Monitor closely. We want to thank you for consulting us on Ms. Holguin. We will continue to follow along and adjust our treatment plan per her hospital course. Dictated by CARMEN Hanna for Dilia Stewart MD cc: Dilia Stewart MD I have seen and examined the patient and the above note reflects my history, physical and assessment and plan. Dilia DOMINGUEZ
[2018-05-01 06:18] LABS: BASO# 0.02 X1000 (0.0-0.2); BASO% 0.3 % (0.0-0.8); EOS# 0.24 X1000 (0.0-0.7); EOS% 3.6 % (0.0-10.0); HEMATOCRIT 29.9 % (37.0-47.0); HEMOGLOBIN 9.5 g/dL (12.0-16.0); LYMPH# 0.88 X1000 (1.2-3.4); LYMPH% 13.3 % (20.5-51.1); MCH 28.7 PG (27-31); MCHC 31.8 g/dL (33-37); MCV 90.3 FL (81-99); MONO# 0.95 X1000 (0.11-0.59); MONO% 14.4 % (1.7-9.3); MPV 9.8 FL (7.4-10.4); NEUT# 4.52 X1000 (1.4-6.5); NEUT% 68.4 % (42.2-75.2); PLT 182 X1000 (130-400); RBC 3.31 XMIL (4.2-5.4); WBC 6.61 X1000 (4.8-10.8)
[2018-05-01] MEDS: CARAFATE LIQUID PO SCH ×2 (06:18→12:17)
[2018-05-01] MEDS: SYNTHROID PO SCH (06:18)
[2018-05-01] MEDS: HUMULIN R SUBQ SCH ×2 (06:24→12:17)
[2018-05-01 06:26] LABS: CALCIUM 8.8 mg/dL (8.8-10.2); CREATININE 1.3 mg/dL (0.5-0.9); POTASSIUM 3.7 mmol/L (3.5-5.1)
--- NOTE | 2018-05-01 06:26 | Diag Imaging Result Doc PS360 ---
CHEST-PORTABLE - 05/01/2018 INDICATION: dyspnea COMPARISON: 04/30/2018 FINDINGS: Stable cardiomegaly and pulmonary vascular congestion. Stable bilateral pleural effusions. Stable mild central pulmonary edema. IMPRESSION: No change from prior. Electronically signed by Minor Gonzalez 05/01/2018 6:23 AM
[2018-05-01] MEDS ORDERED: CARDIZEM PO SCH (08:30)
[2018-05-01] MEDS: TRUSOPT 2% OPH SOLN LEFT EYE SCH (08:58)
[2018-05-01] MEDS: CORDARONE PO SCH (08:59)
[2018-05-01] MEDS: CENTRUM SILVER PO SCH (08:59)
[2018-05-01] MEDS: ISORDIL PO SCH ×2 (08:59→12:18)
--- NOTE | 2018-05-01 08:59 | EKG Report ---
Test Performed on : 05/01/2018 08:24:18 AM Test Reason : afib Blood Pressure : / mmHG Vent. Rate : 116 BPM Atrial Rate : 072 BPM P-R Int : 000 ms QRS Dur : 118 ms QT Int : 320 ms P-R-T Axes : 000 -87 129 degrees QTc Int : 444 ms Atrial fibrillation. with rapid ventricular response. Left anterior fascicular block Lateral infarct , age undetermined Abnormal ECG When compared with ECG of 01-MAY-2018 08:23, (Unconfirmed) Previous ECG has undetermined rhythm, needs review Confirmed by Carter BARRERA, Gerald Gipson ([id number]) on 05/02/2018 9:23:06 AM
[2018-05-01] MEDS: PROTONIX IV SCH (09:00)
[2018-05-01] MEDS: MIRALAX PO SCH (09:00)
[2018-05-01] MEDS: ICAR-C PO SCH (09:00)
--- NOTE | 2018-05-01 10:02 | Extremity Venous Study ---
PROCEDURE NAME: Venous U/S Left Arm - 04/28/2018 Left upper extremity venous duplex and color flow imaging study using the [employer] vivid E9 ultrasound system with a 9 L-D transducer. REFERRING PHYSICIAN: Dr. Chung. 87-year-old female INDICATIONS: Swelling of the left upper extremity suggestive of deep venous thrombosis. FINDINGS: The left internal jugular vein was compressible and had flow through it. The left axillary and subclavian veins had flow through them without evidence of thrombus. The left brachial vein was compressible throughout its length and had flow through it. The superficial veins of the left arm, cephalic and basilic veins were compressible as was the small veins in the antecubital fossa and left forearm. INTERPRETATION: No evidence of acute deep or superficial venous thrombosis of the left upper extremity. cc: MD Aarti Jay MD
--- NOTE | 2018-05-01 10:03 | Extremity Venous Study ---
PROCEDURE NAME: Venous U/S Bilateral Legs - 04/28/2018 Bilateral lower extremity venous duplex and color flow imaging study using the [employer] vivid E9 ultrasound system with a 9L-D transducer. REFERRING PHYSICIAN: Dr. Chung. PROCESS AUTOMATION ENGINEER: Ollie. INDICATION: Bilateral lower extremity swelling suggestive of deep venous thrombosis. FINDINGS: Right common femoral vein and its branches, deep and superficial femoral veins were satisfactorily imaged. They had flow through them and were compressible. Right popliteal vein, deep veins below the right knee were all compressible and had flow through them. Superficial veins of the right lower extremity were compressible throughout their length. The left common femoral vein and its branches, deep and superficial femoral veins were also satisfactorily imaged. There was no evidence of thrombus. These veins were compressible and had flow through them. The left popliteal vein, deep veins below the left knee were all compressible and had flow through them. Superficial veins the left lower extremity were compressible throughout their length. INTERPRETATION: No evidence of acute deep or superficial venous thrombosis of the bilateral lower extremities. cc: MD Aarti Jay MD
[2018-05-01] MEDS ORDERED: LOPRESSOR PO SCH (12:00)
--- NOTE | 2018-05-01 12:40 | CONSULTATION ---
DATE OF CONSULTATION: 05/01/2018 IMPRESSION: 1. Paroxysmal atrial fibrillation. Patient currently in atrial fibrillation with mild elevation in ventricular rate response. 2. Recent gastrointestinal hemorrhage while on anticoagulation. GI evaluation has disclosed gastric ulcers and recommended anticoagulation be held pending further treatment. The patient did require transfusion of 4 packs of red blood cells. 3. Right femoral vein deep venous thrombosis diagnosed in December 2017, after which the patient was started on Xarelto. Re-evaluation this admission shows no evidence of persistent DVT. 4. Hypertension. 5. Hyperlipidemia. 6. Type 2 diabetes mellitus. 7. Chronic diastolic heart failure. RECOMMENDATIONS: 1. Agree with plans to hold anticoagulation pending further followup with Gastroenterology. 2. Would resume beta-dom which the patient had been on prior to hospitalization. However, would resume at lower dose of bisoprolol 5 mg p.o. daily, given her bradycardia evident on initial presentation this hospitalization. 3. Close followup with her primary drawing in hand, Dr. Hsu, in 3 weeks after discharge. HISTORY: This 87-year-old female with past history of longstanding hypertension, chronic diastolic heart failure, paroxysmal atrial fibrillation, DVT diagnosed December 2017, type 2 diabetes mellitus, and hyperlipidemia, was admitted with shortness of breath, dizziness, and lab evidence of acute GI bleed. She had some rectal bleeding. She required transfusion of 4 units of packed red cells. Anticoagulation was interrupted. GI evaluation disclosed gastric ulcer. She has been convalescing. She has shown intermittent atrial fibrillation. She is to be discharged today but was noted to have some mild elevation in heart rate response to her atrial fibrillation, and for this reason, Cardiology was consulted. She is asymptomatic from a cardiovascular standpoint. She previously had been on bisoprolol 10 mg p.o. daily, but her ECG on presentation this hospitalization showed a showed sinus bradycardia at 52 beats per minute. There has been no syncope. PAST MEDICAL HISTORY: 1. Hypertension, longstanding. 2. Chronic diastolic heart failure. 3. Paroxysmal atrial fibrillation. 4. DVT diagnosed December 2017. Recent venous Doppler study shows no persistence of DVT. 5. Hypothyroidism. 6. Type 2 diabetes mellitus. 7. Hyperlipidemia. 8. Gastric ulcer diagnosed this admission. 9. Appendectomy and hysterectomy comprise her surgical history. 10. She has no known drug allergies. MEDICATIONS PRIOR TO ADMISSION: As listed. SOCIAL HISTORY: She lives at home but has family in the community. She does not smoke or use alcohol. FAMILY HISTORY: Negative for premature coronary disease. REVIEW OF SYSTEMS: Pulmonary: Negative. Gastrointestinal: Noteworthy for recent rectal bleeding which has resolved. GI review of systems otherwise negative. Constitutional: Negative Remainder of review of systems negative/noncontributory with 14 total systems reviewed. PHYSICAL EXAMINATION: General: This is an elderly female in no distress. Vital signs: Blood pressure 127/56, heart rate 102 to 116 and irregular with ECG monitor showing atrial fibrillation, oxygen saturation 98% on room air. HEENT: Extraocular movements appear intact. Mucous membranes moist. Neck: Supple, without jugular venous distention. There are no carotid bruits. Chest: Clear to auscultation. Cardiac: Reveals an irregular rate and rhythm without appreciable murmur or gallop. Abdomen: Soft. Bowel sounds audible. Extremities: Without edema. Neurologic: Reveals her to be alert and fully oriented. Speech is fluent. Moves all 4 extremities equally well. LABORATORY DATA: Includes a white blood cell of 6.61, hematocrit 29.9, hemoglobin 9.5, platelet count 182,000. Sodium 143, potassium 3.7, chloride 105, carbon dioxide 26, BUN 19, creatinine 1.3, glucose 146. TSH 4.2. cc: Sampson Petersen MD
[2018-05-01 12:57] VITALS: BP 130/68
--- NOTE | 2018-05-01 15:23 | ECHO REPORT ---
ORDER DATE: 05/01/2018 ECHOCARDIOGRAPHY: INDICATION: CHF. FINDINGS: 1. The right atrium appears normal in size. 2. Mild tricuspid regurgitation. RV systolic pressure of 43. 3. Normal RV size and systolic function. 4. Mild pulmonic insufficiency. 5. Mild to moderate left atrial enlargement with a dimension of 4.6 cm. 6. No mitral valve prolapse. Mild mitral regurgitation. 7. Normal LV size. End-diastolic dimension of 3.8. Mild left ventricular hypertrophy with a posterior and interventricular septal wall thickness of 1.2 cm each. Normal LV systolic function. Estimated EF is 60% with normal wall motion. 8. The aortic valve opens well. There is no evidence of stenosis. Mild insufficiency. The valve is somewhat sclerotic. 9. The aorta appears normal in visualized segments. 10. No pericardial effusion seen. cc: MD Aarti Rodriguez MD
--- NOTE | 2018-05-01 15:39 | HEMO/ONC PROGRESS NOTE ---
DATE: 05/01/2018 The lab results on most of the tests ordered for Ms. Holguin have returned. It does not appear that she has monoclonal band. Her haptoglobin is 149. Her iron is actually pretty good considering her recent history of GI bleed. We recommend that the patient continue to follow up with GI. We will follow up with her as an outpatient in 2 months to recheck her iron. We agree with continuing to hold Xarelto. Please make sure that the patient is discharged without Xarelto. She needs no further anticoagulation at this point. We are going to sign off for the time being. We are available as needed. Please do call if our assistance is needed any further. Dictated by CARMEN Hanna for Dilia tSewart MD cc: Dilia Stewart MD MTDD
[2018-05-02] MEDS ORDERED: CORDARONE PO SCH (09:00)
[2018-05-02] MEDS ORDERED: ZEBETA PO SCH (09:00)
--- NOTE | 2018-05-06 23:22 | PROVIDER DOCUMENTATION ---
This chart was entered by Navjot Ellsworth Scribe, acting as scribe for Martinez Dennison MD. HPI-Respiratory General - General Chief Complaint: Shortness of Breath Stated Complaint: CHF / DIZZY / CONGESTION Time Seen by Provider: 04/25/18 13:44 Source: patient Allergies/Adverse Reactions: Patient Allergies Allergy/AdvReac Type Severity Reaction Status Date / Time No Known Allergies Allergy Verified 10/08/17 06:17 Home Medications: Home Medication List Medication Instructions Recorded Confirmed Last Taken Type Aspirin 81 mg PO DAILY 06/07/13 04/25/18 04/25/18 History 81 MG Furosemide [Lasix] 40 mg PO DAILY 06/07/13 04/25/18 04/25/18 History 40 MG Levothyroxine [Synthroid] 50 microgm PO DAILY@0600 06/07/13 04/25/18 04/25/18 History 50 MICROGM Lovastatin [Altoprev] 20 mg PO DAILY 06/07/13 04/25/18 04/25/18 History 20 MG Metformin [Glucophage] 850 mg PO BID 06/07/13 04/25/18 03/18/18 09:00 History Dorzolamide 2% Oph Soln [Trusopt 1 drop LEFT EYE BID 06/08/13 04/25/18 04/25/18 History 2% Oph Soln] 1 DROP Spironolactone [Aldactone] 25 mg PO BID #60 tablet 06/14/13 04/25/18 04/25/18 Rx 25 MG Isosorbide Dinitrate [Isordil] 20 mg PO TID 04/23/16 04/25/18 04/25/18 History 20 MG Hydralazine [Apresoline] 25 mg PO TID 08/01/17 04/25/18 04/25/18 History 25 MG Bimatoprost 0.01% Oph Solution 1 ml BOTH EYES HS bottle 08/02/17 04/25/1804/25 Rx [Lumigan 0.01% Oph Solution] 1 ML Amiodarone [Cordarone] 200 mg PO DAILY 12/12/17 04/25/18 04/25/18 History 200 MG Ramipril 10 mg PO BID 12/12/17 04/25/18 04/25/18 History 10 MG Amiodarone [Cordarone] 200 mg PO DAILY tablet 05/01/18 Unknown Rx Bisoprolol [Zebeta] 10 mg PO DAILY #0 tablet 05/01/18 04/25/18 04/24/18 Rx 10 MG Ergocalciferol (Vitamin D2) 50,000 unit PO Q7D #8 cap 05/01/18 Unknown Rx [Vitamin D] Iron Carbonyl/Ascorbic Acid 1 ea PO BID #60 tab 05/01/18 Unknown Rx [Icar-C] Pantoprazole [Protonix] 40 mg PO BID #60 tab 05/01/18 Unknown Rx RAMIpril [Altace] 2.5 mg PO DAILY #30 cap 05/01/18 Unknown Rx Sucralfate [Carafate] 1 gm PO 4XDAY #120 tab 05/01/18 Unknown Rx - History of Present Illness-Resp Nature of Presenting Problem: 87 y/o F presents to the ED c/o shortness of breath. Onset last night. Patient reports not sleeping last night due to symptoms. Patient reports lower extremity swelling. Patient reports history of diabetes, HTN, hyperlipidemia, thyroid and CHF. Daughter at bedside states patient was admitted x1 month ago for a DVT and placed on Xerelto. Denies chest pain, nausea, vomiting and all other symptoms. Quality of Pain: reports: none Severity in ED: reports: mild Onset/Duration: reports: last night Timing: reports: still present Cough Quality/Degree: reports: no cough Episode Frequency: no prior episodes Current Respiratory Medication Therapy: Initiated see nurses note Modifying Factors: improves with: nothing Associated Symptoms: reports: denies symptoms Similar Symptoms Previously?: No Recently seen or treated by another doctor?: No Review of Systems - Adult - REVIEW OF SYSTEMS - ADULT Constitutional: denies: chills, fever Eyes: reports: no symptoms reported Ears, Nose, Mouth & Throat: reports: sinus problem (congestion) Cardiovascular: denies: chest pain, palpitations Respiratory: reports: shortness of breath. denies: wheezing Gastrointestinal: denies: abdominal pain, diarrhea, nausea, vomiting Genitourinary: denies: dysuria, flank pain Musculoskeletal: reports: no symptoms reported Integumentary: reports: no symptoms reported Neurological: denies: dizziness/vertigo, headache/migraines, syncope Psychiatric: reports: no symptoms reported Endocrine: reports: no symptoms reported Hematologic/Lymphatic: reports: no symptoms reported Allergic/Immunologic: reports: no symptoms reported All Other Systems: Reviewed and Negative Past History - Adult - PAST MEDICAL HISTORY-ADULT Review of Records: reports: Nursing Assessment Review, Medications Reviewed Major Childhood Illnesses: reports: denies history Cardiovascular: reports: A-Fib, CHF, HTN, hyperlipidemia Respiratory: reports: denies history Gastrointestinal: reports: denies history Obstetrical/Gynecological: reports: denies history Genitourinary: reports: denies history Musculoskeletal: reports: denies history Neurological: reports: denies history Endocrine/Immune: reports: Diabetes, thyroid disorder Other Conditions: reports: denies history - PRIOR SURGERIES/PROCEDURES Surgical/Procedure History: reports: appendectomy, hysterectomy - IMMUNIZATION STATUS Childhood Immunizations: See Nurse Assessment Flu Vaccine: See Nurse Assessment - FAMILY HISTORY Family History: reviewed, not pertinent Physical Exam-General - PHYSICAL EXAM-ADULT Initial Vital Signs Reviewed: Yes - CONSTITUTIONAL General Appearance: alert, no apparent distress - EYES Eyes: PERRL/EOMI - HEAD, EARS, NOSE, MOUTH & THROAT HENMT: moist mucous membranes, normal ENT inspection, TMs normal, pharynx normal - NECK Neck: normal inspection - RESPIRATORY Respiratory: chest non-tender, lungs clear, normal breath sounds - CARDIOVASCULAR Cardiovascular: normal peripheral pulses, regular rate, rhythm - GASTROINTESTINAL (ABDOMEN) Abdominal Exam: normal bowel sounds, non tender, soft - MUSCULOSKELETAL Back Exam: normal inspection Extremity: non-tender, normal inspection - SKIN Integumentary: normal color, normal turgor, warm/dry - NEUROLOGIC Neurologic: grossly normal - PSYCHIATRIC Psych/Mental Status: normal mood/affect, oriented x 3 Progress - PLAN OF CARE/RESULTS Progress/Plan/Lab Results: Orders Category Date Time Status Admit [facility] Routine AdmDCTranf 04/25/18 16:41 Active Activity - Strict Bedrest ORDERED Care 04/25/18 16:41 Active Cardiac Monitoring DIRECTED Care 04/25/18 13:40 Completed Intake and Output-Strict ORDERED Care 04/25/18 16:41 Active Nursing- MD Consult Request ROUTINE Care 04/25/18 16:41 Completed Nursing- Obtain EKG once Care 04/25/18 13:40 Completed Transfuse .Give-Transfuse Care 04/25/18 16:14 Completed Transfuse .Give-Transfuse Care 04/25/18 16:41 Completed Vital Signs Order Q 4-HR ASSESS Care 04/25/18 16:41 Completed Z-Document. for Tele Applied ORDERED Care 04/25/18 16:41 Completed Physician/Provider Consults Routine Cons 04/25/18 16:41 Ordered Diabetic Diet Diet 04/25/18 16:41 Completed CHEST-2 VIEWS [RAD] Stat Exams 04/25/18 13:40 Completed BASIC METABOLIC PANEL [CHEM] Routine Lab 04/26/18 05:11 Completed CBC WITH DIFF [HEME] Routine Lab 04/26/18 05:11 Completed CBC WITH DIFF [HEME] Stat Lab 04/25/18 14:16 Completed CK PROFILE [SP CHEM] Stat Lab 04/25/18 14:16 Completed COMPREHENSIVE METABOLIC PANEL [CHEM] Stat Lab 04/25/18 14:16 Completed D-DIMER [COAG] Stat Lab 04/25/18 14:16 Completed LRPC (RED CELLS) [BBK] Stat Lab 04/25/18 14:16 Completed MAGNESIUM [CHEM] Stat Lab 04/25/18 14:16 Completed OCCULT BLOOD SCREEN STOOL PL Stat Lab 04/25/18 14:36 Completed PRO B-NATRIURETIC PEPTIDE Stat Lab 04/25/18 14:16 Completed PROTIME WITH INR [COAG] Stat Lab 04/25/18 14:16 Completed TROPONIN T Stat Lab 04/25/18 14:16 Completed TYPE & SCREEN [BBK] Stat Lab 04/25/18 14:16 Completed 0.9% Sodium Chloride Inj [Ns] 1,000 ml Med 04/25/18 16:41 Discontinued IV 50 mls/hr Acetaminophen [Tylenol] Med 04/25/18 16:41 Discontinued 650 mg PO Q6H PRN PRN Amiodarone [Cordarone] Med 04/26/18 09:00 Discontinued 200 mg PO DAILY Bimatoprost 0.01% Oph Solution [Lumigan 0.01% Oph Med 04/25/18 21:00 Discontinued Solution] 0 ml BOTH EYES HS Bisoprolol [Zebeta] Med 04/25/18 21:00 Discontinued 10 mg PO QHS Dorzolamide 2% Oph Soln [Trusopt 2% Oph Soln] Med 04/25/18 21:00 Discontinued 0 ml LEFT EYE BID Hydralazine [Apresoline] Med 04/25/18 17:00 Discontinued 25 mg PO TID Isosorbide Dinitrate [Isordil] Med 04/25/18 17:00 Discontinued 20 mg PO TID Levothyroxine [Synthroid] Med 04/26/18 06:00 Discontinued 50 microgm PO DAILY@0600 Ondansetron [Zofran] Med 04/25/18 16:41 Discontinued 4 mg IV Q4H PRN PRN Patient's Own Med Med 04/26/18 09:00 Discontinued 1 each PO DAILY Telemetry [OM.EQ] Routine Oth 04/25/18 16:41 Active EKG [EKG] Stat Ther 04/25/18 13:40 Draft Transfer/Admit Order [TRANSFER] Routine Transfer 04/25/18 15:37 Completed Result Diagrams: 05/01/18 05:41 05/01/18 05:41 - EKG 1 Time of EKG reading by physician:: 13:55 EKG Read and Signed by:: Martinez Dennison EKG Interpretation (*Must complete 3 of following elements*): Abnormal Rate: 52 Rhythm: atrial fibrillation QRS: RBB, other (left anterior fascicular block) Departure - Departure Date of Disposition Decision: 04/25/18 Time of Disposition Decision: 16:00 DIAGNOSIS: GI bleed, Anemia Disposition: ADMITTED INPATIENT 09 Certified Medical Emergency: Emergent Condition: Stable - Critical Care Note This patient required my direct & personal management of CC.: No Attestation - Physician/ FINN Attestation Patient care was provided by Advanced Practice Provider:: No The physician spent face to face time with patient:: Yes Advanced Practice Provider documentation review:: Supervising physician onsite and consulted in the evaluation and care of this patient. The physician did have a face to face encounter with the patient. This chart was documented by the indicated scribe, (Navjot Ellsworth Scribrichie) and accurately reflects the services I performed and decisions made by me, Martinez Dennison MD, as attested by the provider's signature.
--- NOTE | 2018-05-09 13:25 | DISCHARGE SUMMARY ---
ADMISSION DATE: 04/25/2018 DISCHARGE DATE: 05/01/2018 FINAL DISCHARGE DIAGNOSES: 1. Gastrointestinal bleed secondary to gastric ulcers. 2. Anemia of acute blood loss. 3. Acute kidney injury. 4. Acute pulmonary edema. 5. Paroxysmal atrial fibrillation. 6. Hypothyroidism. 7. Hypertension. 8. Diabetes mellitus type 2. 9. Constipation. IMAGING PERFORMED DURING THIS HOSPITAL STAY: 1. Bilateral venous ultrasound of the legs, which revealed no evidence of superficial venous thrombosis of the bilateral lower extremities. 2. Venous ultrasound of the left arm that revealed no evidence of DVT. 3. Echocardiogram which revealed an ejection fraction of 60%. CONSULTATIONS: 1. GI consultation with Dr. Grant Rogers. 2. Cardiology consultation with Dr. Sampson Petersen. 3. Hematology consultation with Dr. Dilia Stewart. PROCEDURE: EGD performed on 04/27/2018 that revealed a gastric ulcer in the body of the stomach measuring 1 cm. No active bleeding. HOSPITAL COURSE: Ms. Holguin is an 87-year-old female with a history of multiple medical problems who initially presented to the ER with a chief complaint of shortness of breath and dizziness. On admission, the patient was noted to have a hemoglobin of 5.6 with a hematocrit of 18. The patient was transferred to [facility], [place] and GI was consulted. The patient was taken for EGD on 04/27/2018 after receiving several units of packed red blood cells. The EGD revealed a gastric ulcer in the body of the stomach but no active bleeding was seen. The patient was maintained on Carafate and Protonix drip. Prior to admission, the patient was on Xarelto for lower extremity DVT. There was a question about whether the patient would require an IVC filter given her GI bleed. General Surgery was consulted for assistance with this. Repeat lower extremity venous Doppler was done on both lower extremities which revealed no evidence of DVT, so the patient was told to stay off of the Xarelto for now until further notice from the tire center supervisor. The patient did develop volume overload with pulmonary edema, and so the Lasix was restarted , which improved the patient's volume status. Prior to discharge, the patient went into atrial fibrillation with rapid ventricular response. Cardiology was consulted, and the patient was started back on Zebeta which improved the patient's heart rate. The patient continued to improve clinically and was ultimately cleared for discharge home. DISCHARGE MEDICATIONS: 1. Vitamin D2 at 50,000 units oral every 7 days. 2. Icar-C 1 tablet oral twice a day. 3. Altace 2.5 mg p.o. daily. 4. Carafate 1 g p.o. 4 times a day. 5. Amiodarone 200 mg p.o. daily. 6. Protonix 40 mg p.o. twice a day. 7. Metformin 850 mg p.o. twice a day. 8. Lovastatin 20 mg p.o. daily. 9. Synthroid 50 mcg oral daily. 10. Lasix 40 p.o. daily. 11. Aspirin 81 mg p.o. daily. 12. Trusopt 2% ophthalmic solution, 1 drop to the left eye twice a day. 13. Aldactone 25 mg p.o. twice a day. 14. Isordil 20 mg p.o. 3 times a day. 15. Hydralazine 25 mg p.o. 3 times a day. 16. Lumigan 0.01% ophthalmic solution 1 mL to both eyes at bedtime. 17. Amiodarone 200 mg p.o. daily. 18. Zebeta 10 mg p.o. daily. DISCHARGE DIET: 1800 ADA diet/low-sodium diet. ACTIVITY: As tolerated. FOLLOWUP INSTRUCTIONS: The patient will need to follow up with Dr. Rogers in 2 to 3 weeks. The patient will need to follow up with Dr. Hsu as scheduled by his clinic. The patient will need to follow up with Dr. Stewart as scheduled by her clinic. The patient will need to follow up with Dr. Severino in 2 weeks. cc: MD Keiko Alonso MD [facility]
== END 2018-05-01 13:33 | disposition home health service (06) | DRG 377 ==
LOC: P.ED 13:29 → SUATTDRO 16:24 → 3S 16:24 → 4N 04-30 14:33
PROVIDERS: ATTEND Internal Medicine
CPT/HCPCS: 36430; 71010; 71020; 71045; 71046; 74019; 74020; 80048; 80053; 82232; 82270; 82306; 82550; 82607; 82728; 82746; 82784; 82805; 82948; 83010; 83540; 83615; 83735; 83880; 83883; 84155; 84165; 84439; 84443; 84484; 85014; 85018; 85025; 85027; 85379; 85610; 86334; 86850; 86900; 86901; 86920; 93005; 93010; 93306; 93970; 93971; 94640; 94761; 97162; 97530; 99285; 99291; A9270; C9113; J1940; J3430; J7030; J7040; J7070; P9016; P9017; S0164; XXXXX